=== PATIENT | male | born 1985 | race Caucasian/White ===

== ENCOUNTER 2017-09-14 13:54 | Emergency (ER) | payer OTHER ==
[2017-09-14 14:24] VITALS: BP 111/75
--- NOTE | 2017-09-14 14:24 | ED Physician Documentation ---
PD HPI LOWER EXT INJURY - Stated complaint Stated Complaint: L FOOT/ANKLE INJURY - History obtained from History obtained from: Patient - History of Present Illness PD HPI LOW EXT INJURY LOCATION: Left, Ankle, Foot Type of injury: Twist Where injury occurred: Park Timing - onset: Today Timing - details: Abrupt onset Improved by: Rest Worsened by: Moving, Other (cannot walk) Associated symptoms: No: Weakness, Numbness, Tingling Review of Systems Constitutional: reports: Reviewed and negative Cardiac: reports: Reviewed and negative Respiratory: reports: Reviewed and negative PD ED PE NORMAL - Vitals Vital signs reviewed: Yes - General General: Alert and oriented X 3, No acute distress - Extremities Extremities: Other (Focused examination of left ankle and foot demonstrates no tenderness of either malleoli of the ankle or proximal fibula. Achilles function is normal and nontender, the calcaneus is nontender. He does have tenderness over the ATFL and the proximal fifth metatarsal. Normal neurovascular status in the foot.) - Neuro Neuro: Alert and oriented X 3, Normal speech - Psych Psych: Normal mood, Normal affect Results - Vitals Vitals: Vital Signs - 24 hr 09/14/17 14:23 Temperature 36.8 C Heart Rate 55 L Respiratory 16 Rate Blood Pressure 111/75 O2 Saturation 100 Oxygen O2 Source Room air - Rads (name of study) Left foot x-ray Radiology: EMP read contemporaneously (Somewhat distracted fracture of the proximal left fifth metatarsal) Procedures - Splint (location) Left foot Splint applied by: Tech Type of splint: Fiberglass, Short leg, Posterior Other: Patient tolerated well, No complications, Neurovascular intact, Crutches provided PD MEDICAL DECISION MAKING - ED course ED course: He declined prescription pain medication. Departure - Departure Disposition: 01 Home, Self Care Clinical Impression: Fracture of fifth metatarsal bone of left foot Qualifiers: Encounter type: initial encounter Fracture type: closed Fracture alignment: displaced Qualified Code(s): S92.352A - Displaced fracture of fifth metatarsal bone, left foot, initial encounter for closed fracture Condition: Good Record reviewed to determine appropriate education?: Yes Instructions: ED Cast Care Fiberglass, ED Crutch Walking, ED Fx Foot Comments: Take a copy of the x-rays and follow-up with [facility] on Tuesday to have a referral to the orthopedic clinic. Return if worse. Keep it elevated. Do not walk or bear weight on it, do not get the splint wet. Forms: Activity restrictions
--- NOTE | 2017-09-14 14:40 | XRAY Preliminary Report ---
Exam: XR FOOT 3 VIEW LT IMPRESSION: Nondisplaced fifth metatarsal base fracture. [facility] SITE ID: [id number]
--- NOTE | 2017-09-14 14:43 | XRAY Report ---
EXAM: LEFT FOOT RADIOGRAPHY EXAM DATE: 09/14/2017 02:32 PM. CLINICAL HISTORY: Pain. COMPARISON: None. TECHNIQUE: 3 views. FINDINGS: Bones: Non-displaced transverse fracture fifth metatarsal base. Otherwise unremarkable. Joints: Normal. No subluxations. Soft Tissues: Mild soft tissue swelling. IMPRESSION: Nondisplaced fifth metatarsal base fracture. [facility] Referring Provider Line: [phone] SITE ID: [id number]
== END 2017-09-14 15:19 | disposition home or self-care (01) ==
LOC: ED 13:54
DX: S92.355A Nondisplaced fracture of fifth metatarsal bone, left foot, initial encounter for closed fracture (principal); X50.0XXA Overexertion from strenuous movement or load, initial encounter; Y92.830 Public park as the place of occurrence of the external cause
CPT/HCPCS: 29515; 99283